=== PATIENT | male | born 1960 | race Caucasian/White ===

== ENCOUNTER 2019-07-30 17:01 | Inpatient (IN) | payer OTHER ==
[~2019-07-30] VITALS: Ht 172.7 cm; Wt 68.0 kg
[2019-07-30] MEDS ORDERED: SODIUM CHLORIDE 0.9% 1,000 ML IV ONE (17:53)
[2019-07-30] MEDS ORDERED: ONDANSETRON HCL 4MG/2ML INJ IV STA (17:53)
[2019-07-30] MEDS ORDERED: MORPHINE SULFATE 4 MG/ML CPJ (NOT FOR IM USE) IV STA (17:53)
[2019-07-30 18:40] LABS: HEMATOCRIT. 40.6 % (42.0-52.0); HEMOGLOBIN. 13.4 g/dL (14.0-18.0); MEAN CORPUSCULAR HEMOGLOBIN 26.2 pg (28.0-32.0); MEAN CORPUSCULAR VOLUME 79.5 fL (80.0-94.0); MEAN PLATELET VOLUME 8.9 fl (7.4-10.4); PLATELET 202 x1000/uL (130-400); RED BLOOD CELL COUNT 5.11 mill/uL (4.7-6.1)
[2019-07-30 18:44] LABS: CLARITY URINE CLEAR (CLEAR); COLOR URINE YELLOW (YELLOW); KETONES URINE 1+ (NEGATIVE); LEUKOCYTE ESTERASE URINE NEGATIVE (NEGATIVE); NITRITE URINE NEGATIVE (NEGATIVE); OCCULT BLOOD URINE TRACE (NEGATIVE); PROTEIN URINE TRACE (NEGATIVE); SPECIFIC GRAVITY URINE 1.033 (1.005-1.030)
[2019-07-30 18:48] LABS: CHLORIDE 100 mEq/L (98-107); PROTHROMBIN TIME 10.6 sec (9.6-11.0)
[2019-07-30] MEDS ORDERED: ACETAMINOPHEN 325MG TABLET PO ONE (21:00)
[2019-07-30 21:10] LABS: PLATELET ESTIMATE NORMAL
[2019-07-30] MEDS ORDERED: ACETAMINOPHEN 325MG TABLET PO PRN (23:15)
[2019-07-30] MEDS ORDERED: ONDANSETRON HCL 4MG/2ML INJ IV PRN (23:15)
[2019-07-30 23:25] VITALS: BP 135/84
[2019-07-31] VITALS: BP 135/84
[2019-07-31] MEDS ORDERED: CEFTRIAXONE 1 G PREMIX 50 ML IV SCH
[2019-07-31] MEDS: SODIUM CHLORIDE 0.9% 1,000 ML IV SCH ×3 (00:16→15:49)
[2019-07-31] MEDS: KETOROLAC 30MG/ML VIAL IV PRN ×2 (02:55→12:11)
[2019-07-31 04:00] VITALS: BP 144/88
[2019-07-31] MEDS ORDERED: DEXTROSE 50% WATER 50ML SYRINGE IV PRN (04:15)
[2019-07-31] MEDS: BLOOD SUGAR DIAGNOSTIC STRIP TEST SCH ×3 (06:14→17:40)
[2019-07-31 07:29] LABS: BASOPHILS % 0.2 % (0.0-2.0); HEMATOCRIT. 36.1 % (42.0-52.0); LYMPHOCYTES % 8.6 % (20.0-50.0); MEAN CORPUSCULAR HEMOGLOBIN 26.6 pg (28.0-32.0); MEAN CORPUSCULAR VOLUME 79.7 fL (80.0-94.0); MEAN PLATELET VOLUME 8.9 fl (7.4-10.4); NEUTROPHILS % 83.2 % (40.0-76.0); PLATELET 169 x1000/uL (130-400); RED BLOOD CELL COUNT 4.53 mill/uL (4.7-6.1); RED CELL DISTRIBUTION WIDTH 17.4 % (11.6-14.6)
[2019-07-31] MEDS: INSULIN LISPRO 100 UNITS/ML SUBCUT SCH ×3 (07:50→17:40)
[2019-07-31 08:00] VITALS: BP 110/67
[2019-07-31] MEDS ORDERED: ENOXAPARIN 40MG/0.4ML SYR SUBCUT SCH (09:00)
[2019-07-31 12:00] VITALS: BP 115/70
[2019-07-31 16:00] VITALS: BP 125/75
[2019-07-31] MEDS ORDERED: CIPR-263 MT (17:47)
[2019-07-31 17:57] VITALS: BP 125/75
[2019-08-01] MEDS ORDERED: CEFTRIAXONE 1,000 MG in DEXTROSE 5% WATER 50 ML IV SCH ×2
== END 2019-07-31 18:27 | disposition home or self-care (01) | DRG 694 ==
LOC: ER 17:01 → 6EST 21:25 → ENRESERV 21:44
PROVIDERS: ADMIT Internal Medicine; ATTEND Internal Medicine
DX: N13.2 Hydronephrosis with renal and ureteral calculous obstruction (principal); Z79.899 Other long term (current) drug therapy
CPT/HCPCS: 36415; 74176; 80048; 80053; 81003; 82962; 83036; 85025; 96374; 99285; J0696; J1650; J1885; J2270; J2405; J7030; J7060